=== PATIENT | male | born 1995 | race American Indian/Alaskan Native ===

== ENCOUNTER 2018-01-27 11:07 | Emergency (ER) | payer SELFPAY ==
[2018-01-27 12:58] LABS: Bilirubin,Urine NEG (Negative); Blood,Urine NEG (Negative); Color,Urine Yellow (Yellow); Protein,Urine <15 mg/dL mg/dL (Negative); Urobilinogen,Urine < 2.0 mg/dL (<2.0)
[2018-01-27] MEDS ORDERED: XYLOCAINE 1% MPF 5 mL INFILTRATI ONE (14:44)
[2018-01-27] MEDS ORDERED: ROCEPHIN IM ONE (14:44)
--- NOTE | 2018-01-27 14:55 | Emergency Department Report ---
ED Male HPI - General Chief complaint: Urogenital-Male Stated complaint: BURNING WITH URINATION Time Seen by Provider: 01/27/18 14:42 Source: patient Mode of arrival: Ambulatory Limitations: No Limitations - History of Present Illness Initial comments: 22-year-old male presents with complaint of dysuria for 3 days. Denies penile discharge at this time. Denies fevers chills nausea vomiting or testicular swelling. Is concerned he may been exposed to an STD as he has been in the past. Patient is awake alert and oriented 3 not in acute distress. Denies hematuria. Denies any flank pain. Denies any abdominal pain. MD Complaint: dysuria Onset/Timin Location: penis Consistency: intermittent Worsens with: urination new medication denies other symptoms - Related Data Sexually active: Yes Previous Rx's Medication Instructions Recorded Last Taken Type Azithromycin [Zithromax TAB] 250 mg PO ONCE #4 tablet 01/27/18 Unknown Rx metroNIDAZOLE [Metronidazole] 1,000 mg PO BID #4 tablet 01/27/18 Unknown Rx Allergies Allergy/AdvReac Type Severity Reaction Status Date / Time No Known Allergies Allergy Unverified 01/27/18 11:39 ED Review of Systems ROS: Stated complaint: BURNING WITH URINATION Other details as noted in HPI Constitutional: denies: chills, fever Eyes: denies: eye pain, eye discharge, vision change ENT: denies: ear pain, throat pain Respiratory: denies: cough, shortness of breath, wheezing Cardiovascular: denies: chest pain, palpitations Endocrine: no symptoms reported Gastrointestinal: denies: abdominal pain, nausea, diarrhea Genitourinary: denies: urgency, dysuria Musculoskeletal: denies: back pain, joint swelling, arthralgia Skin: denies: rash, lesions Neurological: denies: headache, weakness, paresthesias Psychiatric: denies: anxiety, depression Hematological/Lymphatic: denies: easy bleeding, easy bruising ED Past Medical Hx - Past Medical History Hx Seizures: Yes - Surgical History Past Surgical History?: No - Social History Smoking Status: Current Every Day Smoker Substance Use Type: Alcohol - Medications Home Medications: Home Medications Medication Instructions Recorded Confirmed Last Taken Type Azithromycin [Zithromax TAB] 250 mg PO ONCE #4 tablet 01/27/18 Unknown Rx metroNIDAZOLE [Metronidazole] 1,000 mg PO BID #4 tablet 01/27/18 Unknown Rx ED Physical Exam - General Limitations: No Limitations General appearance: alert, in no apparent distress - Head Head exam: Present: atraumatic, normocephalic - Eye Eye exam: Present: normal appearance - ENT ENT exam: Present: mucous membranes moist - Neck Neck exam: Present: normal inspection - Respiratory Respiratory exam: Present: normal lung sounds bilaterally. Absent: respiratory distress - Cardiovascular Cardiovascular Exam: Present: regular rate, normal rhythm. Absent: systolic murmur, diastolic murmur, rubs, gallop - GI/Abdominal GI/Abdominal exam: Present: soft, normal bowel sounds - Rectal Rectal exam: Present: deferred - Extremities Exam Extremities exam: Present: normal inspection - Back Exam Back exam: Present: normal inspection - Neurological Exam Neurological exam: Present: alert, oriented X3, CN II-XII intact - Psychiatric Psychiatric exam: Present: normal affect, normal mood - Skin Skin exam: Present: warm, dry, intact, normal color. Absent: rash ED Course Vital Signs 01/27/18 11:40 Temperature 97.7 F Pulse Rate 79 Respiratory 16 Rate Blood Pressure 109/65 O2 Sat by Pulse 100 Oximetry ED Medical Decision Making - Medical Decision Making A/P: Urethritis 1-patient empirically treated with azithromycin and ceftriaxone, 1 dose of metronidazole 2-GC cultures sent 3-patient given follow-up with primary care Critical care attestation.: If time is entered above; I have spent that time in minutes in the direct care of this critically ill patient, excluding procedure time. ED Disposition Clinical Impression: Urethritis, Dysuria Disposition: DC-01 TO HOME OR SELFCARE Is pt being admited?: No Does the pt Need Aspirin: No Condition: Stable Instructions: Nonspecific Urethritis in Men (ED), Dysuria (ED) Prescriptions: Azithromycin [Zithromax TAB] 250 mg PO ONCE #4 tablet metroNIDAZOLE [Metronidazole] 1,000 mg PO BID #4 tablet Referrals: [facility] [Provider Group] - 3-5 Days [facility] [Outside] - 3-5 Days Forms: STI Treatment and Prevention Time of Disposition: 14:56
[2018-01-27 15:08] VITALS: BP 122/72
== END 2018-01-27 15:05 | disposition home or self-care (01) ==
LOC: ED 11:07
DX: N34.2 Other urethritis (principal); F17.200 Nicotine dependence, unspecified, uncomplicated
CPT/HCPCS: 81001; 87591; 96372; 99283; J0696

== ENCOUNTER 2018-01-30 18:19 | Emergency (ER) | payer SELFPAY ==
[2018-01-30 18:33] VITALS: BP 118/76
--- NOTE | 2018-01-30 22:10 | Emergency Department Report ---
ED Male HPI - General Chief complaint: Urogenital-Male Stated complaint: STD/BUMPS ON PENIS/DISCHARGE Time Seen by Provider: 01/30/18 22:08 Source: patient Mode of arrival: Ambulatory Limitations: No Limitations - History of Present Illness Initial comments: The patient is a 23-year-old male presents ED complaining of bumps on his penis 2 days. Patient was seen here about 3 days ago for STD screening. Patient was treated prophylactically for STDs cultures were sent. He presents today stating that he noticed some bumps on his penis and doesn't think the medication walk. He had made some mi dysuria. He denies fevers/chills nausea vomiting abdominal pain shortness of breath , scrotum swelling or pain - Related Data Previous Rx's Medication Instructions Recorded Last Taken Type Azithromycin [Zithromax TAB] 250 mg PO ONCE #4 tablet 01/27/18 Unknown Rx metroNIDAZOLE [Metronidazole] 1,000 mg PO BID #4 tablet 01/27/18 Unknown Rx Acyclovir 800 mg PO BID #20 tablet 01/30/18 Unknown Rx Acyclovir [Acyclovir Ointment] 1 applicatio TP 5XD #1 tube 01/30/18 Unknown Rx Ibuprofen [Motrin] 600 mg PO Q8H PRN #30 tablet 01/30/18 Unknown Rx Allergies Allergy/AdvReac Type Severity Reaction Status Date / Time No Known Allergies Allergy Unverified 01/27/18 11:39 ED Review of Systems ROS: Stated complaint: STD/BUMPS ON PENIS/DISCHARGE Other details as noted in HPI Constitutional: denies: chills, fever Eyes: denies: eye pain, eye discharge, vision change ENT: denies: ear pain, throat pain Respiratory: denies: cough, shortness of breath, wheezing Cardiovascular: denies: chest pain, palpitations Endocrine: no symptoms reported Gastrointestinal: denies: abdominal pain, nausea, diarrhea Genitourinary: denies: urgency, dysuria Musculoskeletal: denies: back pain, joint swelling, arthralgia Skin: denies: rash, lesions Neurological: denies: headache, weakness, paresthesias Psychiatric: denies: anxiety, depression Hematological/Lymphatic: denies: easy bleeding, easy bruising ED Past Medical Hx - Past Medical History Previous Medical History?: Yes Hx Seizures: Yes (as child) - Surgical History Past Surgical History?: No - Social History Smoking Status: Former Smoker Substance Use Type: None - Medications Home Medications: Home Medications Medication Instructions Recorded Confirmed Last Taken Type Azithromycin [Zithromax TAB] 250 mg PO ONCE #4 tablet 01/27/18 Unknown Rx metroNIDAZOLE [Metronidazole] 1,000 mg PO BID #4 tablet 01/27/18 Unknown Rx Acyclovir 800 mg PO BID #20 tablet 01/30/18 Unknown Rx Acyclovir [Acyclovir Ointment] 1 applicatio TP 5XD #1 tube 01/30/18 Unknown Rx Ibuprofen [Motrin] 600 mg PO Q8H PRN #30 tablet 01/30/18 Unknown Rx ED Physical Exam - General Limitations: No Limitations General appearance: alert, in no apparent distress - Head Head exam: Present: atraumatic, normocephalic - Eye Eye exam: Present: normal appearance - ENT ENT exam: Present: mucous membranes moist - Neck Neck exam: Present: normal inspection - Respiratory Respiratory exam: Present: normal lung sounds bilaterally. Absent: respiratory distress - Cardiovascular Cardiovascular Exam: Present: regular rate, normal rhythm. Absent: systolic murmur, diastolic murmur, rubs, gallop - GI/Abdominal GI/Abdominal exam: Present: soft, normal bowel sounds - Rectal Rectal exam: Present: deferred - exam: Present: circumcision. Absent: testicular tenderness, urethral discharge, scrotal swelling External exam: Present: lesions (ON PENILE SHAFT CONSISTENT WITH HERPES). Absent: erythema, swelling, lacerations - Extremities Exam Extremities exam: Present: normal inspection - Back Exam Back exam: Present: normal inspection - Neurological Exam Neurological exam: Present: alert, oriented X3 - Psychiatric Psychiatric exam: Present: normal affect, normal mood - Skin Skin exam: Present: warm, dry, intact, normal color. Absent: rash ED Course Vital Signs 01/30/18 18:30 Temperature 99 F Pulse Rate 86 Respiratory 16 Rate Blood Pressure 118/76 O2 Sat by Pulse 99 Oximetry ED Medical Decision Making - Medical Decision Making 23-year-old male presents with a herpes Discussed patient to follow-up with outside medical clinic for further STD testing Discussed urinalysis was negative as well as gonorrhea and chlamydia cultures were negative from 3 days ago Patient also complains of history of hemorrhoids. Discussed patient to increase fiber in her diet to help with straining Patient did not have any problems defecating Vital signs normal patient is in no acute distress. Critical care attestation.: If time is entered above; I have spent that time in minutes in the direct care of this critically ill patient, excluding procedure time. 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 Take all your medications as you've been prescribed. If you have any worsening symptoms or develop new symptoms please return to ED immediately. Prescriptions: Acyclovir 800 mg PO BID #20 tablet Acyclovir [Acyclovir Ointment] 1 applicatio TP 5XD #1 tube Ibuprofen [Motrin] 600 mg PO Q8H PRN #30 tablet PRN Reason: Pain Referrals: PRIMARY CARE, [Primary Care Provider] - 3-5 Days [facility] [Outside] - 3-5 Days [facility] [Outside] - 3-5 Days Forms: Accompanied Note, Work/School Release Form(ED) Time of Disposition: 22:16
== END 2018-01-30 22:45 | disposition home or self-care (01) ==
LOC: ED 18:19
DX: A60.00 Herpesviral infection of urogenital system, unspecified (principal); Z87.891 Personal history of nicotine dependence
CPT/HCPCS: 99283